=== PATIENT | female | born 1970 | race Caucasian/White ===

== ENCOUNTER → 2022-02-28 | Day surgery (SDC) | payer BC | END | disposition home or self-care (01) | LOC: JRADUS-SUR 09:00 | PROVIDERS: ATTEND Obstetrics & Gynecology | PROC: 0H9T3ZX Drainage of Right Breast, Percutaneous Approach, Diagnostic (ICD-10-PCS; principal; 2022-02-28) | DX: D24.1 Benign neoplasm of right breast (principal) | CPT/HCPCS: 19083; 77065-TC; 87899; 88305-TC; A4648; G0279-TC ==

== ENCOUNTER → 2022-03-22 | Day surgery (SDC) | payer BC | END | disposition home or self-care (01) | LOC: FMAMMOTONE 09:30 | PROVIDERS: ATTEND Obstetrics & Gynecology | PROC: 0HBU3ZX Excision of Left Breast, Percutaneous Approach, Diagnostic (ICD-10-PCS; principal; 2022-03-22) | DX: N60.22 Fibroadenosis of left breast (principal); N60.32 Fibrosclerosis of left breast; N60.82 Other benign mammary dysplasias of left breast; N64.89 Other specified disorders of breast; R92.0 Mammographic microcalcification found on diagnostic imaging of breast | CPT/HCPCS: 19081; 76098-TC-FY; 87899; 88305-TC; A4648 ==

== ENCOUNTER 2023-12-10 05:15 | Day surgery (SDC) | payer BC ==
[2023-12-05 10:22] VITALS: BMI 28.9
[2023-12-10] MEDS ORDERED: HEPARIN NA (PORCINE) 5,000 UNITS/ML 1ML VIAL ONE (13:07)
[2023-12-10] MEDS ORDERED: LIDOCAINE HCL 1%, 10 MG/ML (20ML VIAL) ONE (13:08)
[2023-12-10] MEDS ORDERED: PROPOFOL 20 ML ONE (14:03)
[2023-12-10] MEDS ORDERED: MIDAZOLAM HCL 2 MG/2 ML SINGLE DOSE VIAL ONE (14:03)
[2023-12-10] MEDS ORDERED: FENTANYL CITRATE/PF 50 MCG/ML VIAL ONE ×3 (14:03→15:03)
[2023-12-10] MEDS ORDERED: ceFAZolin SODIUM 1 GM VIAL ONE (14:11)
[2023-12-10] MEDS: ceFAZolin 2 GRAM PREMIX BAG IVPB ONE (14:12)
[2023-12-10] MEDS: LIDOCAINE HCL 1%, 10 MG/ML (20ML VIAL) INF ONE ×2 (14:29)
[2023-12-10] MEDS ORDERED: KETOROLAC TROMETHAMINE 30 MG/1 ML VIAL ONE (14:34)
[2023-12-10] MEDS ORDERED: oxyCODONE HCL 5 MG TABLET PO PRN (14:52)
[2023-12-10] MEDS ORDERED: ACETAMINOPHEN 1000 MG/100 ML BAG IVPB PRN (14:52)
[2023-12-10] MEDS ORDERED: ONDANSETRON 4 MG/2 ML VIAL IVPUSH PRN (14:52)
[2023-12-10] MEDS ORDERED: LACTATED RINGERS SOLUTION 1,000 ML IV SCH (15:00)
[2023-12-10 16:41] VITALS: BP 124/80; PULSE 74; RESP 20; TEMP 97
== END 2023-12-10 17:00 | disposition home or self-care (01) ==
LOC: JASU-SURG 05:15
PROVIDERS: ATTEND Surgery
PROC: 05H633Z Insertion of Infusion Device into Left Subclavian Vein, Percutaneous Approach (ICD-10-PCS; 2023-12-10)
PROC: B517ZZA Fluoroscopy of Left Subclavian Vein, Guidance (ICD-10-PCS; 2023-12-10)
PROC: 0JH63WZ Insertion of Totally Implantable Vascular Access Device into Chest Subcutaneous Tissue and Fascia, Percutaneous Approach (ICD-10-PCS; principal; 2023-12-10 14:30)
DX: C50.911 Malignant neoplasm of unspecified site of right female breast (principal)
CPT/HCPCS: 36561; C1788; 71045-TC-FY; 76000-TC-FY; 81025; 94760; C1751; J1644

== ENCOUNTER 2023-12-16 10:34 | Day surgery (SDC) | payer BC ==
[2023-12-16 11:13] LABS: BASO % 0.1 % (0-2.0); HEMATOCRIT 41.1 % (32.4-45.2); HEMOGLOBIN 13.8 GM/dL (10.7-15.3); MCH 32.5 pg (25.7-33.7); MCHC 33.7 g/dl (32.0-36.0); MEAN CELL VOLUME 96.4 fl (80-96); MONO % 4.9 % (3.8-10.2); PLATELET COUNT 290 10^3/uL (134-434); RBC 4.26 M/mm3 (3.60-5.2); RDW 12.8 % (11.6-15.6)
[2023-12-16 11:41] LABS: POTASSIUM 4.3 mmol/L (3.5-5.1)
[2023-12-16 11:43] LABS: ALBUMIN 3.9 g/dl (3.4-5.0); BLOOD UREA NITROGEN 14.6 mg/dL (7-18)
[2023-12-16 11:45] LABS: MAGNESIUM 2.3 mg/dL (1.8-2.4)
[2023-12-16 11:47] LABS: CREATININE 0.9 mg/dL (0.55-1.3)
[2023-12-16 11:48] LABS: BILIRUBIN,DIRECT 0.1 mg/dL (0.0-0.2); BILIRUBIN,TOTAL 0.3 mg/dL (0.2-1); TOT PROT 7.9 g/dl (6.4-8.2)
[2023-12-16] MEDS: SODIUM CHLORIDE 250 ML IV ONE ×2 (12:32→15:32)
[2023-12-16] MEDS: PALONOSETRON HCL 0.25 MG/5 ML VIAL IVPUSH ONE (13:25)
[2023-12-16] MEDS: DEXAMETHASONE SODIUM PHOSPHATE 10 MG in SODIUM CHLORIDE 50 ML IVPB ONE (13:29)
[2023-12-16] MEDS: DOCETAXEL IV ONE (13:50)
[2023-12-16] MEDS: SODIUM CHLORIDE IV ONE (13:50)
[2023-12-16] MEDS: CYCLOPHOSPHAMIDE INJECTION 1,240 MG in SODIUM CHLORIDE 250 ML IVPB ONE (14:57)
[2023-12-16 16:06] VITALS: RESP 18; TEMP 98
[2023-12-16] MEDS: PORTA CATH FLUSH 10 ML IVPUSH PRN (16:30)
[2023-12-16 16:40] VITALS: BP 128/76; PULSE 72
== END 2023-12-16 16:45 | disposition home or self-care (01) ==
LOC: JONCCHEMO 10:34 → J7W 10:35 → JONCCHEMO 16:45
PROVIDERS: ATTEND Internal Medicine Hematology & Oncology
DX: Z51.11 Encounter for antineoplastic chemotherapy (principal); C50.411 Malignant neoplasm of upper-outer quadrant of right female breast; Z17.0 Estrogen receptor positive status [ER+]
CPT/HCPCS: 36415; 80048; 80076; 82306; 83735; 85025; 96375; 96413; 96417; J2469; J9074

== ENCOUNTER 2023-12-17 12:54 | Day surgery (SDC) | payer BC ==
[2023-12-17] MEDS: PORTA CATH FLUSH 10 ML IVPUSH PRN (13:00)
[2023-12-17] MEDS: DEXAMETHASONE INJECTION 6 MG in SODIUM CHLORIDE 50 ML IVPB ONE (13:15)
[2023-12-17] MEDS: DEXTROSE 5%-0.45% SALINE 500 ML IV ONE (13:40)
[2023-12-17] MEDS: MAGNESIUM 1GM/D5W - 1 GM/100 ML IVPB IVPB ONE (14:20)
[2023-12-17] MEDS: KCL 10 MEQ IVPB 10 MEQ/100 ML INFUS.BAG IVPB SCH (14:20)
[2023-12-17] MEDS: PEGFILGRASTIM-CBQV (UDENYCA) 6 MG/0.6 ML SYRINGE SQ ONE (16:05)
[2023-12-17 17:43] VITALS: BP 135/82; PULSE 62; RESP 18; TEMP 98.5
== END 2023-12-17 16:25 | disposition home or self-care (01) ==
LOC: J7W 12:54 → JONCCHEMO 12:54
PROVIDERS: ATTEND Internal Medicine Hematology & Oncology
PROC: 3E043GC Introduction of Other Therapeutic Substance into Central Vein, Percutaneous Approach (ICD-10-PCS; principal; 2023-12-17)
PROC: 3E01305 Introduction of Other Antineoplastic into Subcutaneous Tissue, Percutaneous Approach (ICD-10-PCS; 2023-12-17)
DX: Z51.11 Encounter for antineoplastic chemotherapy (principal); C50.411 Malignant neoplasm of upper-outer quadrant of right female breast; Z17.0 Estrogen receptor positive status [ER+]
CPT/HCPCS: 96365; 96366; 96367; 96368; 96372; 96375; J1100; Q5111

== ENCOUNTER 2024-01-06 10:00 | Day surgery (SDC) | payer BC ==
[~2024-01-06 10:00] MED LIST: DEXAMETHASONE SODIUM PHOSPHATE 10 MG in SODIUM CHLORIDE 50 ML IVPB ONE
[2024-01-06 10:22] LABS: BASO % 0.1 % (0-2.0); HEMATOCRIT 38.5 % (32.4-45.2); HEMOGLOBIN 13.2 GM/dL (10.7-15.3); LYMPH % 9.6 % (8-40); MCH 32.5 pg (25.7-33.7); MCHC 34.3 g/dl (32.0-36.0); MEAN CELL VOLUME 94.5 fl (80-96); MEAN PLT VOLUME 8.2 fl (7.5-11.1); MONO % 4.4 % (3.8-10.2); NEUT % 85.9 % (42.8-82.8); PLATELET COUNT 493 10^3/uL (134-434); RBC 4.07 M/mm3 (3.60-5.2); RDW 13.6 % (11.6-15.6); WHITE BLOOD COUNT 15.4 K/mm3 (4.0-10.0)
[2024-01-06] MEDS: SODIUM CHLORIDE 250 ML IV ONE ×2 (10:26→14:09)
[2024-01-06 10:39] LABS: POTASSIUM 4.6 mmol/L (3.5-5.1)
[2024-01-06 10:40] LABS: CALCIUM 10.4 mg/dL (8.5-10.1)
[2024-01-06 10:42] LABS: ALBUMIN 3.8 g/dl (3.4-5.0); MAGNESIUM 2.2 mg/dL (1.8-2.4)
[2024-01-06 10:43] LABS: BLOOD UREA NITROGEN 11.4 mg/dL (7-18)
[2024-01-06 10:45] LABS: BILIRUBIN,TOTAL 0.4 mg/dL (0.2-1); TOT PROT 7.6 g/dl (6.4-8.2)
[2024-01-06] MEDS: PALONOSETRON HCL 0.25 MG/5 ML VIAL IVPUSH ONE (11:36)
[2024-01-06] MEDS: DEXAMETHASONE SODIUM PHOSPHATE 8 MG in SODIUM CHLORIDE 50 ML IVPB ONE (11:43)
[2024-01-06] MEDS: SODIUM CHLORIDE IV ONE (12:20)
[2024-01-06] MEDS: DOCETAXEL IV ONE (12:20)
[2024-01-06] MEDS: CYCLOPHOSPHAMIDE INJECTION 1,240 MG in SODIUM CHLORIDE 250 ML IVPB ONE (13:30)
[2024-01-06] MEDS: PORTA CATH FLUSH 10 ML IVPUSH PRN (14:40)
[2024-01-06 17:02] VITALS: BP 120/86; PULSE 92; RESP 20; TEMP 97.9
== END 2024-01-06 14:59 | disposition home or self-care (01) ==
LOC: JONCCHEMO 10:00 → J7W 10:00 → JONCCHEMO 14:59
PROVIDERS: ATTEND Internal Medicine Hematology & Oncology
DX: Z51.11 Encounter for antineoplastic chemotherapy (principal); C50.411 Malignant neoplasm of upper-outer quadrant of right female breast; Z17.0 Estrogen receptor positive status [ER+]
CPT/HCPCS: 36415; 80053; 83735; 85025; 96375; 96413; 96417; J2469; J9074

== ENCOUNTER 2024-01-07 12:40 | Day surgery (SDC) | payer BC ==
[2024-01-07] MEDS: D5-1/2NS+40 MEQ KCL - 20 MEQ/500 ML INFUS.BAG IV ONE (12:54)
[2024-01-07] MEDS: DEXAMETHASONE SODIUM PHOSPHATE 6 MG in SODIUM CHLORIDE 50 ML IVPB ONE (12:56)
[2024-01-07] MEDS: MAGNESIUM 1GM/D5W - 1 GM/100 ML IVPB IVPB ONE (12:57)
[2024-01-07] MEDS: PEGFILGRASTIM-CBQV (UDENYCA) 6 MG/0.6 ML SYRINGE SQ ONE (14:46)
[2024-01-07] MEDS: PORTA CATH FLUSH 10 ML IVPUSH PRN (15:00)
[2024-01-07 15:46] VITALS: PULSE 69; RESP 18; TEMP 98.3
[2024-01-07 16:13] VITALS: BP 112/56
== END 2024-01-07 15:20 | disposition home or self-care (01) ==
LOC: JONCCHEMO 12:40 → J7W 12:40 → JONCCHEMO 15:20
PROVIDERS: ATTEND Internal Medicine Hematology & Oncology
PROC: 3E043GC Introduction of Other Therapeutic Substance into Central Vein, Percutaneous Approach (ICD-10-PCS; principal; 2024-01-07)
PROC: 3E013GC Introduction of Other Therapeutic Substance into Subcutaneous Tissue, Percutaneous Approach (ICD-10-PCS; 2024-01-07)
DX: C50.411 Malignant neoplasm of upper-outer quadrant of right female breast (principal); Z17.0 Estrogen receptor positive status [ER+]; Z76.89 Persons encountering health services in other specified circumstances
CPT/HCPCS: 96365; 96372; Q5111

== ENCOUNTER 2024-01-27 10:11 | Day surgery (SDC) | payer BC ==
[2024-01-27] MEDS: SODIUM CHLORIDE 250 ML IV ONE ×2 (10:54→14:14)
[2024-01-27 11:25] LABS: BASO % 0.3 % (0-2.0); HEMATOCRIT 35.2 % (32.4-45.2); HEMOGLOBIN 12.1 GM/dL (10.7-15.3); LYMPH % 10.1 % (8-40); MCH 32.4 pg (25.7-33.7); MCHC 34.3 g/dl (32.0-36.0); MEAN CELL VOLUME 94.4 fl (80-96); MEAN PLT VOLUME 8.5 fl (7.5-11.1); MONO % 5.6 % (3.8-10.2); PLATELET COUNT 375 10^3/uL (134-434); RBC 3.73 M/mm3 (3.60-5.2); RDW 14.2 % (11.6-15.6); WHITE BLOOD COUNT 12.2 K/mm3 (4.0-10.0)
[2024-01-27 11:44] LABS: POTASSIUM 4.3 mmol/L (3.5-5.1)
[2024-01-27 11:48] LABS: BLOOD UREA NITROGEN 7.5 mg/dL (7-18); CALCIUM 9.5 mg/dL (8.5-10.1); MAGNESIUM 2.1 mg/dL (1.8-2.4)
[2024-01-27 11:49] LABS: ALBUMIN 3.6 g/dl (3.4-5.0)
[2024-01-27 11:51] LABS: CREATININE 0.6 mg/dL (0.55-1.3)
[2024-01-27 11:53] LABS: BILIRUBIN,TOTAL 0.6 mg/dL (0.2-1); TOT PROT 7.1 g/dl (6.4-8.2)
[2024-01-27] MEDS: DEXAMETHASONE SODIUM PHOSPHATE 8 MG in SODIUM CHLORIDE 50 ML IVPB ONE (12:06)
[2024-01-27] MEDS: PALONOSETRON HCL 0.25 MG/5 ML VIAL IVPUSH ONE (12:06)
[2024-01-27] MEDS: DOCETAXEL IV ONE (12:29)
[2024-01-27] MEDS: SODIUM CHLORIDE IV ONE (12:29)
[2024-01-27] MEDS: CYCLOPHOSPHAMIDE INJECTION 1,240 MG in SODIUM CHLORIDE 250 ML IVPB ONE (13:30)
[2024-01-27] MEDS: PORTA CATH FLUSH 10 ML IVPUSH PRN (15:15)
[2024-01-27 15:29] VITALS: RESP 16; TEMP 98.3
[2024-01-27 15:41] VITALS: BP 124/83; PULSE 69
== END 2024-01-27 15:20 | disposition home or self-care (01) ==
LOC: JONCCHEMO 10:11 → J7W 10:12 → JONCCHEMO 15:20
PROVIDERS: ATTEND Internal Medicine Hematology & Oncology
DX: Z51.11 Encounter for antineoplastic chemotherapy (principal); C50.411 Malignant neoplasm of upper-outer quadrant of right female breast; Z17.0 Estrogen receptor positive status [ER+]
CPT/HCPCS: 36415; 80053; 83735; 85025; 96375; 96413; 96417; J2469; J9074

== ENCOUNTER 2024-01-28 12:20 | Day surgery (SDC) | payer BC ==
[2024-01-28] MEDS: D5-1/2NS+40 MEQ KCL - 20 MEQ/500 ML INFUS.BAG IV ONE (12:37)
[2024-01-28] MEDS: MAGNESIUM 1GM/D5W - 1 GM/100 ML IVPB IVPB ONE (12:38)
[2024-01-28] MEDS: PROCHLORPERAZINE INJECTION 10 MG in SODIUM CHLORIDE 50 ML IVPB ONE (13:46)
[2024-01-28] MEDS: DEXAMETHASONE SODIUM PHOSPHATE 6 MG in SODIUM CHLORIDE 50 ML IVPB ONE (13:55)
[2024-01-28] MEDS: PORTA CATH FLUSH 10 ML IVPUSH PRN (14:15)
[2024-01-28] MEDS: PEGFILGRASTIM-CBQV (UDENYCA) 6 MG/0.6 ML SYRINGE SQ ONE (14:25)
[2024-01-28 17:02] VITALS: TEMP 98
[2024-01-28 17:10] VITALS: BP 112/63; PULSE 73; RESP 18
== END 2024-01-28 14:45 | disposition home or self-care (01) ==
LOC: JONCCHEMO 12:20
PROVIDERS: ATTEND Internal Medicine Hematology & Oncology
PROC: 3E043GC Introduction of Other Therapeutic Substance into Central Vein, Percutaneous Approach (ICD-10-PCS; principal; 2024-01-28)
PROC: 3E013GC Introduction of Other Therapeutic Substance into Subcutaneous Tissue, Percutaneous Approach (ICD-10-PCS; 2024-01-28)
DX: C50.411 Malignant neoplasm of upper-outer quadrant of right female breast (principal); Z17.0 Estrogen receptor positive status [ER+]; Z76.89 Persons encountering health services in other specified circumstances
CPT/HCPCS: 96365; 96372; 96375; Q5111

== ENCOUNTER 2024-02-17 09:45 | Day surgery (SDC) | payer BC ==
[2024-02-17] MEDS: SODIUM CHLORIDE 250 ML IV ONE ×2 (10:30→13:55)
[2024-02-17 10:31] LABS: BASO % 0.5 % (0-2.0); HEMATOCRIT 34.5 % (32.4-45.2); HEMOGLOBIN 11.9 GM/dL (10.7-15.3); LYMPH % 8.1 % (8-40); MCH 32.7 pg (25.7-33.7); MCHC 34.5 g/dl (32.0-36.0); MEAN PLT VOLUME 8.3 fl (7.5-11.1); MONO % 5.2 % (3.8-10.2); NEUT % 86.2 % (42.8-82.8); PLATELET COUNT 367 10^3/uL (134-434); RBC 3.64 M/mm3 (3.60-5.2); RDW 14.7 % (11.6-15.6); WHITE BLOOD COUNT 12.4 K/mm3 (4.0-10.0)
[2024-02-17 11:14] LABS: CHLORIDE 107 mmol/L (98-107); POTASSIUM 4.3 mmol/L (3.5-5.1); SODIUM 138 mmol/L (136-145)
[2024-02-17 11:17] LABS: ALBUMIN 3.7 g/dl (3.4-5.0); ANION GAP 8 mmol/L (4-13); CALCIUM 9.5 mg/dL (8.5-10.1); CO2 23 mmol/L (21-32); GLUCOSE,RANDOM 111 mg/dL (74-106); MAGNESIUM 2.2 mg/dL (1.8-2.4)
[2024-02-17 11:18] LABS: BLOOD UREA NITROGEN 14.6 mg/dL (7-18)
[2024-02-17 11:20] LABS: CREATININE 0.7 mg/dL (0.55-1.3); SGPT/ALT 24 U/L (13-61)
[2024-02-17 11:21] LABS: SGOT/AST 14 U/L (15-37)
[2024-02-17 11:22] LABS: BILIRUBIN,TOTAL 0.3 mg/dL (0.2-1); TOT PROT 7.1 g/dl (6.4-8.2)
[2024-02-17 11:23] LABS: ALK PHOS 86 U/L (45-117)
[2024-02-17] MEDS: DEXAMETHASONE SODIUM PHOSPHATE 8 MG in SODIUM CHLORIDE 50 ML IVPB ONE (11:38)
[2024-02-17] MEDS: PALONOSETRON HCL 0.25 MG/5 ML VIAL IVPUSH ONE (12:13)
[2024-02-17] MEDS: SODIUM CHLORIDE IV ONE (12:17)
[2024-02-17] MEDS: DOCETAXEL IV ONE (12:17)
[2024-02-17] MEDS: CYCLOPHOSPHAMIDE INJECTION 1,240 MG in SODIUM CHLORIDE 250 ML IVPB ONE (13:20)
[2024-02-17] MEDS: PORTA CATH FLUSH 10 ML IVPUSH PRN (14:56)
[2024-02-17 18:17] VITALS: BP 126/71; PULSE 74; RESP 18; TEMP 97
== END 2024-02-17 15:20 | disposition home or self-care (01) ==
LOC: JONCCHEMO 09:45 → J7W 10:30 → JONCCHEMO 15:20
PROVIDERS: ATTEND Internal Medicine Hematology & Oncology
DX: Z51.11 Encounter for antineoplastic chemotherapy (principal); C50.411 Malignant neoplasm of upper-outer quadrant of right female breast
CPT/HCPCS: 36415; 80053; 83735; 85025; 96361; 96367; 96375; 96413; 96417; J2469; J9074

== ENCOUNTER 2024-02-18 12:40 | Day surgery (SDC) | payer BC ==
[2024-02-18] MEDS: D5-1/2NS+40 MEQ KCL - 20 MEQ/500 ML INFUS.BAG IV ONE (12:56)
[2024-02-18] MEDS: MAGNESIUM 1GM/D5W - 1 GM/100 ML IVPB IVPB ONE (12:59)
[2024-02-18] MEDS: PROCHLORPERAZINE INJECTION 10 MG in SODIUM CHLORIDE 50 ML IVPB ONE (13:52)
[2024-02-18] MEDS: DEXAMETHASONE SODIUM PHOSPHATE 6 MG in SODIUM CHLORIDE 50 ML IVPB ONE (14:30)
[2024-02-18 14:46] VITALS: RESP 18; TEMP 98.3
[2024-02-18] MEDS: PEGFILGRASTIM-CBQV (UDENYCA) 6 MG/0.6 ML SYRINGE SQ ONE (15:32)
[2024-02-18] MEDS: PORTA CATH FLUSH 10 ML IVPUSH PRN (15:36)
[2024-02-18 15:38] VITALS: BP 111/57; PULSE 66
== END 2024-02-18 15:55 | disposition home or self-care (01) ==
LOC: JONCCHEMO 12:40 → J7W 12:40 → JONCCHEMO 15:55
PROVIDERS: ATTEND Internal Medicine Hematology & Oncology
PROC: 3E043GC Introduction of Other Therapeutic Substance into Central Vein, Percutaneous Approach (ICD-10-PCS; principal; 2024-02-18)
PROC: 3E0437Z Introduction of Electrolytic and Water Balance Substance into Central Vein, Percutaneous Approach (ICD-10-PCS; 2024-02-18)
DX: Z76.89 Persons encountering health services in other specified circumstances (principal); C50.411 Malignant neoplasm of upper-outer quadrant of right female breast
CPT/HCPCS: 96361; 96365; 96372; 96375; Q5111

== ENCOUNTER 2024-03-09 09:01 | Day surgery (SDC) | payer BC ==
[2024-03-09] MEDS: SODIUM CHLORIDE 250 ML IV ONE ×2 (09:25→13:28)
[2024-03-09 09:42] LABS: BASO % 0.1 % (0-2.0); HEMATOCRIT 35.7 % (32.4-45.2); HEMOGLOBIN 12.2 GM/dL (10.7-15.3); LYMPH % 7.3 % (8-40); MCH 32.6 pg (25.7-33.7); MCHC 34.3 g/dl (32.0-36.0); MEAN PLT VOLUME 8.1 fl (7.5-11.1); MONO % 5.8 % (3.8-10.2); NEUT % 86.8 % (42.8-82.8); PLATELET COUNT 391 10^3/uL (134-434); RBC 3.76 M/mm3 (3.60-5.2); RDW 14.9 % (11.6-15.6); WHITE BLOOD COUNT 12.8 K/mm3 (4.0-10.0)
[2024-03-09 10:06] LABS: CHLORIDE 108 mmol/L (98-107); POTASSIUM 4.5 mmol/L (3.5-5.1); SODIUM 138 mmol/L (136-145)
[2024-03-09 10:08] LABS: CALCIUM 9.9 mg/dL (8.5-10.1)
[2024-03-09 10:09] LABS: ALBUMIN 3.6 g/dl (3.4-5.0); ANION GAP 7 mmol/L (4-13); BLOOD UREA NITROGEN 13.9 mg/dL (7-18); CO2 23 mmol/L (21-32); GLUCOSE,RANDOM 118 mg/dL (74-106); MAGNESIUM 2.2 mg/dL (1.8-2.4)
[2024-03-09 10:12] LABS: CREATININE 0.8 mg/dL (0.55-1.3); SGOT/AST 14 U/L (15-37); SGPT/ALT 23 U/L (13-61)
[2024-03-09 10:13] LABS: BILIRUBIN,TOTAL 0.3 mg/dL (0.2-1); TOT PROT 6.9 g/dl (6.4-8.2)
[2024-03-09 10:15] LABS: ALK PHOS 92 U/L (45-117)
[2024-03-09] MEDS: PALONOSETRON HCL 0.25 MG/5 ML VIAL IVPUSH ONE (10:58)
[2024-03-09] MEDS: DEXAMETHASONE SODIUM PHOSPHATE 8 MG in SODIUM CHLORIDE 50 ML IVPB ONE (10:58)
[2024-03-09] MEDS: SODIUM CHLORIDE IV ONE (11:33)
[2024-03-09] MEDS: DOCETAXEL IV ONE (11:33)
[2024-03-09] MEDS: CYCLOPHOSPHAMIDE INJECTION 1,200 MG in SODIUM CHLORIDE 250 ML IVPB ONE (12:56)
[2024-03-09] MEDS: PORTA CATH FLUSH 10 ML IVPUSH PRN (14:35)
[2024-03-09 15:02] VITALS: RESP 20; TEMP 97.8
[2024-03-09 15:41] VITALS: BP 122/79; PULSE 64
== END 2024-03-09 15:00 | disposition home or self-care (01) ==
LOC: JONCCHEMO 09:01 → J7W 09:02 → JONCCHEMO 15:00
PROVIDERS: ATTEND Internal Medicine Hematology & Oncology
DX: Z51.11 Encounter for antineoplastic chemotherapy (principal); C50.411 Malignant neoplasm of upper-outer quadrant of right female breast
CPT/HCPCS: 36415; 80053; 83735; 85025; 96367; 96375; 96413; 96417; J2469; J9074

== ENCOUNTER 2024-03-10 11:59 | Day surgery (SDC) | payer BC ==
[~2024-03-10 11:59] MED LIST changes: -DEXAMETHASONE SODIUM PHOSPHATE 10 MG in SODIUM CHLORIDE 50 ML IVPB ONE; +MAGNESIUM SULFATE IN WATER 2 GM/50 ML IVPB IVPB ONE
[2024-03-10] MEDS: D5-1/2NS+40 MEQ KCL - 20 MEQ/500 ML INFUS.BAG IV ONE (12:00)
[2024-03-10] MEDS: DEXAMETHASONE SODIUM PHOSPHATE 6 MG in SODIUM CHLORIDE 50 ML IVPB ONE (12:10)
[2024-03-10] MEDS: PROCHLORPERAZINE INJECTION 10 MG in SODIUM CHLORIDE 50 ML IVPB ONE (12:26)
[2024-03-10] MEDS: MAGNESIUM 1GM/D5W - 1 GM/100 ML IVPB IVPB ONE (12:42)
[2024-03-10] MEDS: PORTA CATH FLUSH 10 ML IVPUSH PRN (14:10)
[2024-03-10] MEDS: PEGFILGRASTIM-CBQV (UDENYCA) 6 MG/0.6 ML SYRINGE SQ ONE (14:33)
[2024-03-10 17:09] VITALS: TEMP 97.1
[2024-03-10 17:13] VITALS: BP 106/63; PULSE 70; RESP 20
== END 2024-03-10 14:35 | disposition home or self-care (01) ==
LOC: J7W 11:59 → JONCCHEMO 11:59
PROVIDERS: ATTEND Internal Medicine Hematology & Oncology
PROC: 3E043GC Introduction of Other Therapeutic Substance into Central Vein, Percutaneous Approach (ICD-10-PCS; principal; 2024-03-10)
PROC: 3E013GC Introduction of Other Therapeutic Substance into Subcutaneous Tissue, Percutaneous Approach (ICD-10-PCS; 2024-03-10)
DX: C50.411 Malignant neoplasm of upper-outer quadrant of right female breast (principal); Z76.89 Persons encountering health services in other specified circumstances
CPT/HCPCS: 96365; 96366; 96368; 96372; Q5111

== ENCOUNTER 2024-03-30 10:30 | Day surgery (SDC) | payer BC ==
[2024-03-30 11:04] LABS: BASO % 0.1 % (0-2.0); HEMATOCRIT 34.3 % (32.4-45.2); HEMOGLOBIN 11.8 GM/dL (10.7-15.3); LYMPH % 8.2 % (8-40); MCH 32.5 pg (25.7-33.7); MCHC 34.3 g/dl (32.0-36.0); MEAN CELL VOLUME 94.8 fl (80-96); MONO % 8.5 % (3.8-10.2); NEUT % 83.2 % (42.8-82.8); PLATELET COUNT 362 10^3/uL (134-434); RBC 3.62 M/mm3 (3.60-5.2); RDW 15.4 % (11.6-15.6); WHITE BLOOD COUNT 9.1 K/mm3 (4.0-10.0)
[2024-03-30 11:22] LABS: CHLORIDE 106 mmol/L (98-107); POTASSIUM 4.4 mmol/L (3.5-5.1); SODIUM 138 mmol/L (136-145)
[2024-03-30 11:24] LABS: ALBUMIN 3.5 g/dl (3.4-5.0); ANION GAP 10 mmol/L (4-13); CALCIUM 9.7 mg/dL (8.5-10.1); CO2 22 mmol/L (21-32); GLUCOSE,RANDOM 127 mg/dL (74-106); MAGNESIUM 2.1 mg/dL (1.8-2.4)
[2024-03-30 11:25] LABS: BLOOD UREA NITROGEN 8.6 mg/dL (7-18)
[2024-03-30 11:27] LABS: CREATININE 0.8 mg/dL (0.55-1.3); SGPT/ALT 18 U/L (13-61)
[2024-03-30 11:28] LABS: SGOT/AST 9 U/L (15-37)
[2024-03-30 11:29] LABS: BILIRUBIN,TOTAL 0.4 mg/dL (0.2-1); TOT PROT 6.7 g/dl (6.4-8.2)
[2024-03-30 11:30] LABS: ALK PHOS 83 U/L (45-117)
[2024-03-30] MEDS: SODIUM CHLORIDE 250 ML IV ONE ×2 (11:41→15:30)
[2024-03-30] MEDS: DEXAMETHASONE SODIUM PHOSPHATE 8 MG in SODIUM CHLORIDE 50 ML IVPB ONE (13:29)
[2024-03-30] MEDS: PALONOSETRON HCL 0.25 MG/5 ML VIAL IVPUSH ONE (13:31)
[2024-03-30] MEDS: DOCETAXEL IV ONE (13:50)
[2024-03-30] MEDS: SODIUM CHLORIDE IV ONE (13:50)
[2024-03-30] MEDS: CYCLOPHOSPHAMIDE INJECTION 1,200 MG in SODIUM CHLORIDE 250 ML IVPB ONE (14:54)
[2024-03-30 16:28] VITALS: RESP 18; TEMP 98.4
[2024-03-30 16:35] VITALS: BP 126/76; PULSE 60
[2024-03-30] MEDS: PORTA CATH FLUSH 10 ML IVPUSH PRN (16:35)
== END 2024-03-30 16:40 | disposition home or self-care (01) ==
LOC: JONCCHEMO 10:30 → J7W 10:30 → JONCCHEMO 16:40
PROVIDERS: ATTEND Internal Medicine Hematology & Oncology
DX: Z51.11 Encounter for antineoplastic chemotherapy (principal); C50.411 Malignant neoplasm of upper-outer quadrant of right female breast
CPT/HCPCS: 36415; 80053; 82306; 82378; 83735; 85025; 86300; 96375; 96413; 96417; J2469; J2997; J9074

== ENCOUNTER 2024-03-31 11:50 | Day surgery (SDC) | payer BC ==
[2024-03-31] MEDS: DEXTROSE 5%-0.45% SALINE - 500 ML IV ONE (12:11)
[2024-03-31] MEDS: PROCHLORPERAZINE INJECTION 10 MG in SODIUM CHLORIDE 50 ML IVPB ONE (12:15)
[2024-03-31] MEDS: DEXAMETHASONE SODIUM PHOSPHATE 6 MG in SODIUM CHLORIDE 50 ML IVPB ONE (12:29)
[2024-03-31] MEDS: MAGNESIUM 1GM/D5W - 1 GM/100 ML IVPB IVPB ONE (12:48)
[2024-03-31] MEDS: KCL 10 MEQ IVPB 10 MEQ/100 ML INFUS.BAG IVPB SCH (12:53)
[2024-03-31 14:44] VITALS: RESP 18; TEMP 97.8
[2024-03-31] MEDS: PEGFILGRASTIM-CBQV (UDENYCA) 6 MG/0.6 ML SYRINGE SQ ONE (14:59)
[2024-03-31] MEDS: PORTA CATH FLUSH 10 ML IVPUSH PRN (15:00)
[2024-03-31 15:38] VITALS: BP 110/73; PULSE 60
== END 2024-03-31 15:30 | disposition home or self-care (01) ==
LOC: J7W 11:50 → JONCCHEMO 11:50
PROVIDERS: ATTEND Internal Medicine Hematology & Oncology
PROC: 3E043GC Introduction of Other Therapeutic Substance into Central Vein, Percutaneous Approach (ICD-10-PCS; principal; 2024-03-31)
PROC: 3E013GC Introduction of Other Therapeutic Substance into Subcutaneous Tissue, Percutaneous Approach (ICD-10-PCS; 2024-03-31)
DX: C50.411 Malignant neoplasm of upper-outer quadrant of right female breast (principal); Z17.0 Estrogen receptor positive status [ER+]; Z76.89 Persons encountering health services in other specified circumstances
CPT/HCPCS: 96365; 96367; 96372; 96375; Q5111

== ENCOUNTER 2024-05-05 04:22 | Day surgery (SDC) | payer BC ==
[2024-05-01 16:57] VITALS: BMI 28.8
[2024-05-05 08:36] LABS: URINE APPEARANCE CLEAR; URINE BILIRUBIN NEGATIVE (NEGATIVE); URINE COLOR YELLOW; URINE GLUCOSE (UA) NEGATIVE (NEGATIVE); URINE KETONE NEGATIVE (NEGATIVE); URINE LEUK ESTERASE NEGATIVE (NEGATIVE); URINE NITRITE NEGATIVE (NEGATIVE); URINE PROTEIN NEGATIVE (NEGATIVE); URINE UROBILINOGEN 0.2 mg/dL (0.2-1.0)
[2024-05-05 08:43] LABS: PROTHROMBIN TIME (PATIENT) 11.3 SEC (9.7-13.0)
[2024-05-05] MEDS ORDERED: ONDANSETRON 4 MG/2 ML VIAL IVPUSH PRN (09:22)
[2024-05-05] MEDS ORDERED: oxyCODONE HCL 5 MG TABLET PO PRN (09:22)
[2024-05-05] MEDS ORDERED: ISOSULFAN BLUE 50 MG/5 ML VIAL SQ ONE (10:55)
[2024-05-05] MEDS ORDERED: ONDANSETRON 4 MG/2 ML VIAL ONE (11:34)
[2024-05-05] MEDS ORDERED: LIDOCAINE HCL/PF 2% SDV 5ML VIAL ONE (11:34)
[2024-05-05] MEDS ORDERED: METOCLOPRAMIDE HCL INJECTION 10 MG/2 ML VIAL ONE (11:34)
[2024-05-05] MEDS ORDERED: PROPOFOL 20 ML ONE (11:34)
[2024-05-05] MEDS ORDERED: DEXAMETHASONE SOD PHOSPHATE 4 MG/1 ML VIAL ONE (11:34)
[2024-05-05] MEDS ORDERED: ACETAMINOPHEN INJECTION 100 ML IVPB ONE (11:49)
[2024-05-05] MEDS ORDERED: MIDAZOLAM HCL 2 MG/2 ML SINGLE DOSE VIAL ONE (11:51)
[2024-05-05] MEDS: LIDOCAINE HCL 1%, 10 MG/ML (20ML VIAL) NR ONE ×2 (12:19)
[2024-05-05] MEDS: LACTATED RINGERS SOLUTION 1,000 ML IV SCH (13:50)
[2024-05-05 16:43] VITALS: BP 126/74; PULSE 82; RESP 16; TEMP 98.7
== END 2024-05-05 16:30 | disposition home or self-care (01) ==
LOC: JASU-SURG 04:22
PROVIDERS: ATTEND Surgery
PROC: 0HBT0ZZ Excision of Right Breast, Open Approach (ICD-10-PCS; principal; 2024-05-05 12:00)
PROC: 07B50ZX Excision of Right Axillary Lymphatic, Open Approach, Diagnostic (ICD-10-PCS; 2024-05-05 12:00)
PROC: C71L1ZZ Planar Nuclear Medicine Imaging of Upper Chest Lymphatics using Technetium 99m (Tc-99m) (ICD-10-PCS; 2024-05-05 12:00)
DX: C50.919 Malignant neoplasm of unspecified site of unspecified female breast (principal); C77.3 Secondary and unspecified malignant neoplasm of axilla and upper limb lymph nodes
CPT/HCPCS: 19281; 36415; 76098-TC-FY; 77065-TC; 78195-TC; 81003; 85610; 88307-TC; 94760; A9541; J0131